=== PATIENT | male | born 1980 | race Caucasian/White ===

== ENCOUNTER 2016-09-23 03:35 | Emergency (ER) | payer OTHER ==
[~2016-09-23] VITALS: Ht 188 cm; Wt 122.1 kg
[~2016-09-23 03:35] MED LIST: ABC PLUS TABLE1 EACH PO; ABILIFY10 MG PO; ABILIFY20 MG PO; ADVAIR HFA120 INHALA; ADVAIR HFA120 INHALA IH; Advair HFA 115/21 IH; BACTRIM,SEPT1 TABLET PO; BENZTROPINE MESY2 MG PO; BUSPAR10 MG PO; CELEXA10 MG PO; CELEXA20 MG PO; CELEXA40 MG PO; CEPHALEXIN500 MG PO; CITALOPRAM HBR20 MG PO; CITALOPRAM HBR40 MG PO; CLARITHROMYCIN500 MG PO; CLEOCIN300 MG; CLEOCIN300 MG PO; COGENTIN2 MG PO; COMPLERA TABLE1 EACH PO; DAILY VALUE1 EACH PO; DICYCLOMINE HCL20 MG PO; DILAUDID2 MG PO; EPIPEN ADU0.3 MG/0.3 IM; ESSENTIAL ONE1 EACH PO; FLAGYL500 MG PO; FLOVENT 11120 INHALA IH; FOCALIN XR20 MG PO; FOCALIN XR30 MG PO; FOCALIN XR40 MG PO; FOCALIN10 MG PO; FUROSEMIDE20 MG PO; GABAPENTIN300 MG PO; GABAPENTIN400 MG PO; GABAPENTIN600 MG PO; INDOMETHACIN50 MG PO; ISENTRESS400 MG PO; KETOROLAC TROME10 MG PO; KLONOPIN0.5 M1 PO; LITHIUM CARBON300 M2; LITHIUM CARBON300 MG PO; LITHIUM CARBON600 MG PO; LYRICA50 MG PO; Lithium Carbonate PO; MELLARIL25 MG PO; MELLARIL50 MG PO; METADATE CD40 MG; METHYLPHENIDATE10 M1; METHYLPHENIDATE5 MG; METOCLOPRAMIDE10 MG PO; METRONIDAZOLE500 MG PO; MINIPRESS1 MG PO; MIRTAZAPINE30 MG PO; MOTRIN800 MG PO; MULTI DELYN PO; MYCOSTATIN 100,60 ML PO; NAMENDA1 EACH PO; NAPROSYN500 MG PO; NEURONTIN600 MG PO; NEURONTIN800 MG; OMEPRAZOLE40 M1 PO; OXYCODONE HCL10 MG PO; OXYCODONE HCL5 MG PO; OXYCODONE15 MG PO; PERCOCET 5/31 TABLET PO; PRAZOSIN HCL1 MG PO; PREDNISONE20 MG PO; PROAIR HFA8.5 GM IH; Proventil,Ventolin H IH; RANITIDINE HCL150 MG PO; RISPERDAL0.5 MG PO; RITALIN10 MG PO; RITALIN5 MG PO; ROXICODONE5 MG PO; SPIRIVA1 INHALATI IH; SUMATRIPTAN5 MG NS; TESSALON200 MG PO; TIZANIDINE HCL2 MG PO; TORADOL10 MG PO; TRAMADOL HCL50 MG PO; TRUVADA1 TABLET PO; TYLENOL WITH C1 EACH PO; Tessalon Perle PO; ULTRAM50 MG PO; VENTOLIN HFA18 GM; VENTOLIN HFA18 GM IH; ZANTAC150 MG PO; ZOFRAN4 MG PO; [UNRECOGNIZED DRUG - OTHER] PO; celeXA PO
[2016-09-23 04:11] LABS: HEMATOCRIT 44.2 % (38.0-50.0); MCH 31.2 PG (29.0-34.0); MCHC 36.9 G/DL (30.0-36.0); MCV 84.5 FL (86-99); PLATELET COUNT 212 K/uL (156-360); RBC DIS.WIDTH-CV 11.9 % (11.8-14.6); RBC DIS.WIDTH-SD 35.8 % (39-53); RED BLOOD COUNT 5.23 M/uL (4.00-5.50); WHITE BLOOD COUNT 9.2 K/uL (4.1-10.2)
[2016-09-23 04:21] LABS: CHLORIDE 107 mEq/L (99-109); POTASSIUM 5.3 mEq/L (3.7-5.4); SODIUM 140 mEq/L (136-147)
[2016-09-23 04:22] LABS: GLUCOSE 91 mg/dL (70-99)
[2016-09-23 04:24] LABS: ANION GAP 12 MEQ/L (2-14)
[2016-09-23 04:26] LABS: GFR ESTIMATE (CALCULATED) > 59 mL/min/
[2016-09-23 04:27] LABS: UREA NITROGEN (BUN) 18 mg/dL (9-23)
[2016-09-23 04:28] LABS: D-DIMER ELISA < 0.15 mg/L FEU (< 0.57)
[2016-09-23 05:22] LABS: TROP-I INTERPRETATION NEGATIVE; TROPONIN-I < 0.01 ng/mL (0.0-0.30)
[2016-09-23] MEDS ORDERED: TRAMADOL HCL50 MG PO (05:27)
[2016-09-23 05:44] VITALS: BP 102/80
== END 2016-09-23 05:48 ==
LOC: EME 03:35
PROVIDERS: Emergency Medicine
DX: R07.9 Chest pain, unspecified (principal); F32.9 Major depressive disorder, single episode, unspecified; J44.9 Chronic obstructive pulmonary disease, unspecified; I10 Essential (primary) hypertension; Z88.6 Allergy status to analgesic agent; Z88.0 Allergy status to penicillin; Z91.013 Allergy to seafood
CPT/HCPCS: 71010; 80048; 84484; 85027; 85379; 93005; 99281; 99285; J1200; J1885; J2930